=== PATIENT | male | born 1950 | race Caucasian/White ===

== ENCOUNTER → 2017-08-29 | Day surgery (SDC) | payer MEDICARE ==
--- NOTE | 2017-08-27 14:26 | Diagnostic Imaging Report ---
PROCEDURE: Frontal and lateral views of the chest. COMPARISON: None. INDICATIONS: PRE-OPERATIVE CHEST X-RAY FOR URO-LIFT PROCEDURE FINDINGS: Lines/tubes: None. Lungs: The lungs are well inflated and clear. There is no evidence of pneumonia or pulmonary edema. Pleura: There is no pleural effusion or pneumothorax. Heart and mediastinum: The heart and the mediastinum are normal. Bones: No acute bony abnormality. Degenerative changes of the thoracic spine. IMPRESSION: No acute radiographic abnormality. Dictated by: Eddie Marti M.D. on 08/27/2017 at 14:34 Electronically approved by: Eddie Marti M.D. on 08/27/2017 at 14:34
[2017-08-27 14:40] LABS: BASOPHILS # (AUTO) 0.1 (0.0-0.1); BASOPHILS % 0.8 % (0.0-1.0); EOSINOPHILS # (AUTO) 0.1 (0.0-0.4); EOSINOPHILS % 1.2 % (0.0-6.0); HEMATOCRIT 37.6 % (38.2-49.6); HEMOGLOBIN 12.8 g/dL (14.0-18.0); LYMPHOCYTES # (AUTO) 1.9 (1.0-3.2); LYMPHOCYTES % 25.7 % (18.0-39.1); MONOCYTES # (AUTO) 0.8 (0.2-0.8); MONOCYTES % 10.4 % (4.4-11.3); NEUTROPHILS # (AUTO) 4.5 (2.1-6.9); NEUTROPHILS % 61.5 % (38.7-80.0); PLATELET COUNT 191 x10e3/uL (140-360)
[2017-08-27 15:03] LABS: ANION GAP 14.8 mmol/L (8-16); CALCIUM 8.7 mg/dL (8.4-10.2); CREATININE, SERUM 1.25 mg/dL (0.72-1.25); POTASSIUM 3.8 mmol/L (3.5-5.1)
[~2017-08-29] MED LIST: ALFUZOSIN HCL10 MG PO; BELLADONNA/OPIUM 60 MG SUPP PR ONE; BUPROPION XL150 MG PO; CARTIA XT240 MG PO; DOXYCYCLINE HY100 MG PO; ELOQUIS PO; FENTANYL CITRATE/PF 100MCG/2 ML INJ ONE; FUROSEMIDE40 MG PO; GENTAMICIN SULFATE 160 MG in SODIUM CHLORIDE 0.9% 100 ML IV ONE; HUMILIN SC; IOPAMIDOL 610MG/1ML 300 MG/ML VIAL IV ONE; LEVOFLOXACIN 500MG/D5W 100ML 100 ML IV ONE; LIDOCAINE HCL 2% LOCAL INJ 5 ML SDV VIAL INJ ONE; LOSARTAN POTAS100 MG PO; MIDAZOLAM HCL 2 MG/2 ML VIAL ONE; OMEPRAZOLE40 MG PO; ONDANSETRON HCL INJ 2 MG/ML VIAL ONE; POTASSIUM CHLO10 ME1 PO; PROPOFOL IV EMULSION 10 MG/ML 20 ML VIAL ONE; SEVOFLURANE INHAL SOLN 250 ML PEN BTL ONE; VIT D PO; [UNRECOGNIZED DRUG - OTHER] PO
--- NOTE | 2017-10-11 03:57 | Operative Report ---
DATE OF PROCEDURE: August 29, 2017 PREOPERATIVE DIAGNOSES 1. Obstructive BPH. 2. Incomplete bladder emptying. POSTOPERATIVE DIAGNOSES 1. Obstructive BPH. 2. Incomplete bladder emptying. 3. Distal urethral stricture disease. OPERATIONS PERFORMED 1. Cystourethroscopy with calibration and dilation of distal urethral stricture (separate procedure performed for the diagnosis of the stricture). 2. Cystourethroscopy with bilateral ureteral catheterization and retrograde ureteropyelography (separate procedure performed for the incomplete bladder emptying). 3. Interpretation of retrograde ureteropyelography. 4. Cystourethroscopy with implantation of 4 UroLift implants. (separate procedure performed for the obstructive BPH). ANESTHESIA: General. COMPLICATIONS: None. CLINICAL SUMMARY: James. Baldev Fuentes Jr., is a 67-year-old man with obstructive BPH. He is brought for the above procedures. He is aware the risks of bleeding, infection, injury to adjacent structures, need for additional procedures, and elected to proceed. OPERATIVE PROCEDURE IN DETAIL: Informed consent was verified. Eddie Fuentes Jr., was properly identified and taken to the operating room and placed on the cystoscopy table in the supine position. Anesthesia was uneventfully begun. The patient was then carefully and gently repositioned in the dorsal lithotomy position with all pressure points well-padded. His genitalia were prepared and draped in the usual sterile fashion. The 22.5-Malian cystoscope sheath with visual obturator in place was atraumatically placed into the patient's mildly hypospadiac meatus, but it could not pass through the fossa navicularis, which was strictured. We calibrated it at 16-Malian in size and dilated to 26-Malian in size. This was done atraumatically. The 22.5-Malian cystourethroscope sheath was then easily placed through the urethra, which was significant for wide caliber nonobstructing stricture disease proximal to the fossa navicularis stricture. This sphincteric region was normal. We entered the prostate bed. It was significant for lobar prostatic hypertrophy with kissing lateral lobes and elevated median bar. Panendoscopy of the urinary bladder revealed grade 1 trabeculations, but no tumors. No stones and no diverticula. Normally positioned and configured ureteral orifices were identified. An 8-Malian catheter was used to cannulate each ureter, and retrograde ureteropyelograms were performed. Interpretation of retrograde ureteropyelography. Contrast was instilled in a retrograde fashion bilaterally. There was severe J-hooking and severe distal ureteral tortuosity. There was no hydronephrosis. The calices were sharp and delicate, and unobstructed drainage was observed bilaterally fluoroscopically. The patient's bladder was drained. The cystoscope was withdrawn. We then inserted the 20-Malian cystoscope under direct vision utilizing the visual obturator. We then proceeded with placing 4 UroLift implants. Two implants were placed 1.2 cm distal to the bladder neck anterolaterally, and 2 additional implants were placed on either side at the level of the verumontanum. This resulted in a continuous anterior channel. The patient's bladder was drained. Cystoscope was withdrawn. Digital rectal examination was performed while placing a belladonna and opium suppository. This revealed a 30 g prostate, smooth and nonfluctuant without any nodules. The patient was uneventfully reversed from anesthesia and taken to the recovery room in stable condition. There were no complications to the procedure. The patient tolerated the procedure well. Explicit postoperative instructions were given. Will follow the patient up in the office at which point in time uroflowmetry and bladder ultrasonography will be performed. Job#: [id number] TOÑA
== END | disposition home or self-care (01) ==
LOC: OR 06:56
PROVIDERS: ATTEND Urology
DX: N40.1 Benign prostatic hyperplasia with lower urinary tract symptoms (principal); R39.14 Feeling of incomplete bladder emptying; N13.8 Other obstructive and reflux uropathy; N35.8 Other urethral stricture; N32.89 Other specified disorders of bladder; E11.22 Type 2 diabetes mellitus with diabetic chronic kidney disease; I13.0 Hypertensive heart and chronic kidney disease with heart failure and stage 1 through stage 4 chronic kidney disease, or unspecified chronic kidney disease; N18.9 Chronic kidney disease, unspecified; I50.9 Heart failure, unspecified; I48.91 Unspecified atrial fibrillation; G47.30 Sleep apnea, unspecified; K21.9 Gastro-esophageal reflux disease without esophagitis; M19.90 Unspecified osteoarthritis, unspecified site; Z01.810 Encounter for preprocedural cardiovascular examination; Z01.812 Encounter for preprocedural laboratory examination; Z01.818 Encounter for other preprocedural examination; Z79.02 Long term (current) use of antithrombotics/antiplatelets
CPT/HCPCS: 52005; C9740; 36415; 71020; 74420; 80048; 82948; 85025; 93005; J1580; J1956; J2001; J2250; J2405; J7050